=== PATIENT | female | born 2000 | race Caucasian/White ===

== ENCOUNTER 2020-09-20 15:49 | Inpatient (IN) ==
[2020-09-20] MEDS ORDERED: OXYTOCIN 30 UNITS/500 ML BAG IV PRN (16:44)
[2020-09-20] MEDS ORDERED: LACTATED RINGER'S 1,000 ML IV PRN (16:44)
--- NOTE | 2020-09-20 16:51 | Labor Progress Brief Note ---
Date of Service September 20, 2020 Subjective Patient presents with c/o contractions Q2min. +FM, no LOF no VB. Was planning IOL tomorrow but now appears to be laboring spontaneously. Assessment & Plan (1) Normal labor and delivery: Admit for labor, exp mgmt. Patient is hoping for natural childbirth. Physical Exam Physical Exam: 100/-1 Vertex palpable Membranes palpable/bulging FHT Cat 1 [place] Q2 Results & Data ([facility]) Vital Signs (Past 12 Hours) Vital Signs Temp Pulse Resp BP 09/20/20 16:06 98.1 F 20 09/20/20 16:00 90 117/73 Coding Level of Care Code None Diagnoses Normal labor and delivery O80
[2020-09-20 17:18] LABS: Hematocrit (blood only) 37.7 % (37-47); Hemoglobin 13.2 g/dL (12.0-16.0); Mean Corpuscular Hemoglobin 31.8 pg (25-34); Mean Corpuscular Volume 90.8 fL (80-100); Mean Platelet Volume 10.8 fL (7.4-10.4); Platelet Count 187 K/uL (130-400); RDW Coefficient of Variation 13.2 % (11.5-14.5); RDW Standard Deviation 43.6 fL (36.4-46.3); Red Blood Count 4.15 M/uL (4.2-5.4); White Blood Count 11.38 K/uL (4.8-10.8)
--- NOTE | 2020-09-20 20:39 | Labor Progress Brief Note ---
Date of Service September 20, 2020 Subjective Patient breathing through contractions. Assessment & Plan Admission and Anticipated Discharge Date Admission Date: September 20, 2020 Physical Exam Physical Exam: 7/100/0 Intact bulging bag FHT Cat 1 [place] Q2-3. Results & Data ([facility]) Vital Signs (Past 12 Hours) Vital Signs Temp Pulse Resp BP 09/20/20 19:27 99.5 F 18 09/20/20 19:07 99.5 F 100 H 18 100/61 09/20/20 16:06 98.1 F 20 09/20/20 16:00 97.9 F 90 20 117/73 Coding Level of Care Code None
--- NOTE | 2020-09-21 01:13 | Delivery Summary ---
Vaginal Delivery Summary Date of Service September 21, 2020 Vaginal Delivery Summary DIAGNOSES: 1. Russell intrauterine at 41w4d gestation. 2. Spontaneous onset of labor. 3. Group B Streptococcus Neg. PROCEDURE: Spontaneous vaginal delivery and repair of second degree laceration. SURGEON: Nereida Sims MD. OCCUPATIONAL THERAPY ASSISTANT: None. ESTIMATED BLOOD LOSS: 350 mL. COMPLICATIONS: None. PLACENTA: Spontaneous and intact with a 3-vessel cord. DISPOSITION: Stable to labor and delivery. DESCRIPTION: The patient pushed well and brought the head to in OA position. The infant's head was allowed to deliver with contraction force and no further active pushing, with the perineum protected during this time. The shoulders delivered easily with a maternal pushing effort. There was no nuchal cord. The right shoulder was anterior, and the left arm was flexed sharply so that the fist presented alongside the left cheek at the maternal perineum. The shoulders and body delivered without any difficulty, and the was placed on the maternal abdomen. It was vigorous and moving all extremities, and making respiratory efforts. The cord was doubly clamped by the MD and then cut by the MD as the FOB declined. The placenta delivered spontaneously and was noted to be intact and with a 3VC. The cervix, vagina and perineum were examined and were found to have a second degree laceration. This was infiltrated with 1% plain lidocaine after verbal consent was given by the patient, then sutured with 3-0 vicryl in the usual manner. The fundus was firm and lochia minimal immediately after delivery. [facility] Vaginal Delivery Charge Vaginal Delivery Codes: 10268 global code for the antepartum, delivery, and post-
[2020-09-21] MEDS ORDERED: ACETAMINOPHEN 325 MG TAB PO PRN (01:42)
[2020-09-21] MEDS ORDERED: oxyCODONE/ACETAMINOPHEN 5mg/325mg TAB PO PRN (01:42)
[2020-09-21] MEDS ORDERED: HYDROCORTISONE ACETATE 25 MG SUPP PR PRN (01:42)
[2020-09-21] MEDS ORDERED: DIPHTHERIA/TETANUS/PERTUSSIS 0.5 ML SYR/VIAL IM ONE (01:42)
[2020-09-21] MEDS ORDERED: OXYTOCIN 10 UNITS/ML VIAL IM ONE (01:42)
[2020-09-21] MEDS ORDERED: BENZOCAINE 20% AER SPR 82.5 GM CAN EXT PRN (01:42)
[2020-09-21] MEDS ORDERED: IBUPROFEN 600 MG TAB PO PRN (01:42)
[2020-09-21] MEDS ORDERED: SUPERCREAM 0.870% 15 GM JAR EXT PRN (01:42)
[2020-09-21] MEDS: PRENATAL VITAMIN 1 TAB PO SCH (08:27)
[2020-09-21] MEDS: DOCUSATE SODIUM 100 MG CAP PO SCH ×2 (08:27→20:19)
[2020-09-21] MEDS ORDERED: IBUPROFEN 200 MG/10 ML UDC PO PRN (15:28)
--- NOTE | 2020-09-22 05:55 | Obstetrical Progress Note ---
Date of Service September 22, 2020 Assessment & Plan (1) : S/p Day 1 - Feels well today. Eating well, voiding well, ambulating well. - Pain well-controlled with ibuprofen 600mg Q4H PRN. - Vital signs reviewed and WNL. - Hemoglobin reviewed. 13.2 --> 11.1 (today). - Blood Type: A+, antibody negative, GBS negative, Rubella Immune, COVID-19 negative - Continue routine care: encourage ambulation, monitor and control pain with Motrin PRN, continue regular OB diet, monitor lochia - Encourage breast feeding. - Pt counselled on discharge instructions - After discharge, will have 6-wk follow-up with Dr. Sims Admission and Anticipated Discharge Date Admission Date: September 20, 2020 Supervising Physician Co-Signing Physician Notes Resident Physician Supervision Note: I was present with Dr. Chapman during the history and exam. I discussed the case with the resident and agree with the findings and plan as documented in the note. Any exceptions or clarifications are listed here: PPD#2 doing well. DC instructions reviewed. Documented By: Lavonne Mejia, DO Subjective HPI Anne-Marie Rivera is a 20 y/o female who is PPD 1 spontaneous vaginal delivery at 41 4/7 weeks. She reports feeling well overall this morning. No abdominal cramping and mild pain well managed on analgesics. Voiding. Tolerating meals overnight without difficulty. Patient has been able to ambulate some. passing gas and no bowel movement. Has persistent lochia with some improvement this morning. Currently . Review of Systems Review of Systems: ROS Denies fever or chills. Denies shortness of breath or cough. Denies chest pain. Denies breast pain. Denies dysuria. Denies leg pain or leg swelling. Physical Exam Physical Exam: PE General: Alert, oriented. No acute distress. Cardiac: Regular rate and rhythm. No murmurs. Respiratory: Clear to auscultation bilaterally a/p, no wheezes/rales/rhonchi. No increased work of breathing. Symmetrical chest rise. No respiratory distress. Abdomen: Soft, nontender, nondistended. Bowel sounds present. Uterus: Uterine fundus firm, palpable 1 cm below umbilicus. Lower Extremities: No lower extremity edema or swelling. No deep calf pain. Marie's negative bilaterally. Results & Data ([facility]) Vital Signs (Past 12 Hours) Vital Signs Temp Pulse Resp BP 09/22/20 00:10 36.3 C L 76 18 97/59 L 09/21/20 20:15 36.5 C 78 18 98/61 L Resident Activity Tracking Resident Involvement: Resident Care Provided Care Provided: Adult Hospital Medicine
[2020-09-22 06:27] LABS: Hematocrit (blood only) 32.5 % (37-47); Hemoglobin 11.1 g/dL (12.0-16.0); Mean Corpuscular Hemoglobin 31.4 pg (25-34); Mean Corpuscular Hgb Conc 34.2 g/dL (32-36); Mean Corpuscular Volume 92.1 fL (80-100); Mean Platelet Volume 10.6 fL (7.4-10.4); Platelet Count 176 K/uL (130-400); RDW Coefficient of Variation 13.7 % (11.5-14.5); RDW Standard Deviation 45.2 fL (36.4-46.3); Red Blood Count 3.53 M/uL (4.2-5.4); White Blood Count 11.63 K/uL (4.8-10.8)
[2020-09-22] MEDS: PRENATAL VITAMIN 1 TAB PO SCH (08:41)
[2020-09-22] MEDS: DOCUSATE SODIUM 100 MG CAP PO SCH (08:41)
== END 2020-09-22 11:25 | disposition home or self-care (01) | DRG 807 ==
LOC: OPB 15:49 → 4S1 15:51 → 4S2 09-21 03:50